=== PATIENT | male | born 1985 | race Caucasian/White ===

== ENCOUNTER 2016-10-12 05:02 | Observation (INO) | payer BC, MEDICAID ==
[2016-10-12] MEDS ORDERED: Sodium Chloride 0.9% 1,000 ML IV ONE ×2 (05:19→06:29)
[2016-10-12] MEDS ORDERED: Ondansetron 4 MG/2 ML SDV IVPUSH ONE (05:19)
[2016-10-12] MEDS ORDERED: Metoclopramide 10 MG/2 ML SDV IV ONE (05:52)
[2016-10-12] MEDS ORDERED: Morphine 4 MG/ML Syringe IVPUSH ONE (05:52)
[2016-10-12] MEDS ORDERED: Pantoprazole 40 MG Vial IVPUSH ONE (05:53)
[2016-10-12] MEDS ORDERED: LORazepam 2 MG/ML MDV IVPUSH ONE (06:14)
--- NOTE | 2016-10-12 07:06 | EDM.PDOC ---
[id number] 10/12/16 07:00 Source: Reports: Patient, EMS History Limitations: Reports: Other (upper GI bleed.) - History of Present Illness INITIAL COMMENTS - FREE TEXT/NARRATIVE: 30 years old w m came at about 5 am to the ed deu to hematemesis was seen and evaluated by Dr. Mckeon. Please see Dr. Richardson's PE as I took over the case. pt c/o epigastric pain, nausea has inproved, hematemesis has subsided. Vitals were stable. - Related Data Allergies/ADRs: Allergies Allergy/AdvReac Type Severity Reaction Status Date / Time diclofenac [From Voltaren] Allergy Itching Verified 10/12/16 05:18 Home Meds: Home Meds NK [No Known Home Meds] 10/12/16 [History] Past Medical History Respiratory History: Reports: Asthma Gastrointestinal History: Reports: Gastritis, GERD, GI bleed, PUD Genitourinary History: Reports: None Musculoskeletal History: Reports: None Neurological History: Reports: Migraines Psychiatric History: Reports: Anxiety, Depression, Psych Hospitalization(s), Suicide attempt, Suicidal ideation Endocrine/Metabolic History: Reports: Obesity/BMI 30+ - Infectious Disease History Infectious Disease History: Reports: Chicken pox - Past Surgical History GI Surgical History: Reports: Colonoscopy, EGD Male Surgical History: Reports: Vasectomy Musculoskeletal Surgical History: Reports: Arthroscopic knee, Shoulder surgery, Other (see below) Other Musculoskeletal Surgeries/Procedures:: R shoulder surgery x 20, R knee scope Social & Family History - Family History Family Medical History: Noncontributory - Tobacco Use Smoking Status *Q: Former Smoker Years of Tobacco use: 20 - Caffeine Use Caffeine Use: Reports: None - Alcohol Use Days Per Week of Alcohol Use: 1 Number of Drinks Per Day: 6 Total Drinks Per Week: 6 - Recreational Drug Use Recreational Drug Use: No ED ROS GENERAL - Review of Systems Review Of Systems: See Below (please see Dr. Richardson's note) ED EXAM, GI/ABD - Physical Exam Exam: See Below (please see Dr. Mckeon's not who saw the Pt initially) Course - Vital Signs Text/Narrative:: 30 years old w m came at about 5 am to the ed due to hematemesis, was seen and evaluated by Dr. Mckeon. Please see Dr. Richardson's HPI/PE. I took over the case at 7 am . Pt c/o epigastric pain, nausea has improved, hematemesis has subsided. Vitals were stable. Pt has a h/o ETOH abuse and upper GI Bleed in the past PE: epigastic discomfort S/P hematemesis Labs: HGB was 16.7, remainder of the CBC was nl, INR was 1.2 ETOH was 0.23 Impression: ETOH intoxication, upper GI bleed, H/O PUD, Dehydration Tx: Protronix drip, Zofran, Reglan, NS Impression: Improved Consultation: Dr. Frances, surgeon: Rosemary pt, will see pt at [facility] Plan: Admit to M/S for OBS Last Recorded V/S: Last Vital Signs Temp 36.5 C 10/12/16 13:45 Pulse 108 H 10/12/16 15:30 Resp 18 10/12/16 15:30 BP 131/94 H 10/12/16 15:30 Pulse Ox 96 10/12/16 15:30 - Orders/Labs/Meds Labs: Laboratory Tests 10/12/16 10/12/16 10/12/16 Range/Units 05:15 05:15 05:15 WBC 11.3 (4.5-12.0) X10-3/uL RBC 5.65 (4.30-5.75) x10(6)uL Hgb 16.5 H (11.5-15.5) g/dL Hct 49.4 (30.0-51.3) % MCV 87.4 (80-96) fL MCH 29.2 (27.7-33.6) pg MCHC 33.4 (32.2-35.4) g/dL RDW 13.7 (11.5-15.5) % Plt Count 232 (125-369) X10(3)uL MPV 10.1 (7.4-10.4) fL Neut % (Auto) 64.0 (46-82) % Lymph % (Auto) 27.5 (13-37) % [place] % (Auto) 6.1 (4-12) % Eos % (Auto) 0 L (1.0-5.0) % Baso % (Auto) 2 (0-2) % Neut # (Auto) 7.3 (1.6-8.3) # Lymph # (Auto) 3.1 (0.6-5.0) # [place] # (Auto) 0.7 (0.0-1.3) # Eos # (Auto) 0.0 (0.0-0.8) # Baso # (Auto) 0.2 (0.0-0.2) # PT 11.3 H (8.7-11.1) INR 1.12 (0.89-1.13) Sodium 137 (135-145) mmol/L Potassium 4.2 (3.5-5.3) mmol/L Chloride 106 (100-110) mmol/L Carbon Dioxide 20 L (23-29) mmol/L BUN 15 (5-20) mg/dL Creatinine 1.0 (0.6-1.3) mg/dL Est Cr Clr Drug Dosing TNP Estimated GFR (MDRD) > 60 (>60) BUN/Creatinine Ratio 15.0 (9-20) Glucose 112 (80-116) mg/dL Calcium 8.5 L (8.6-10.2) mg/dL Total Bilirubin 0.5 (0.1-1.3) mg/dL AST 58 H (5-27) IU/L ALT 48 H (14-26) IU/L Alkaline Phosphatase 68 (56-112) IU/L Total Protein 8.3 H (6.0-8.0) g/dL Albumin 5.1 (3.5-5.2) g/dL Globulin 3.2 g/dL Albumin/Globulin Ratio 1.6 Amylase (28-100) U/L Ethyl Alcohol (<0.01) % 10/12/16 10/12/16 Range/Units 05:15 05:15 WBC (4.5-12.0) X10-3/uL RBC (4.30-5.75) x10(6)uL Hgb (11.5-15.5) g/dL Hct (30.0-51.3) % MCV (80-96) fL MCH (27.7-33.6) pg MCHC (32.2-35.4) g/dL RDW (11.5-15.5) % Plt Count (125-369) X10(3)uL MPV (7.4-10.4) fL Neut % (Auto) (46-82) % Lymph % (Auto) (13-37) % [place] % (Auto) (4-12) % Eos % (Auto) (1.0-5.0) % Baso % (Auto) (0-2) % Neut # (Auto) (1.6-8.3) # Lymph # (Auto) (0.6-5.0) # [place] # (Auto) (0.0-1.3) # Eos # (Auto) (0.0-0.8) # Baso # (Auto) (0.0-0.2) # PT (8.7-11.1) INR (0.89-1.13) Sodium (135-145) mmol/L Potassium (3.5-5.3) mmol/L Chloride (100-110) mmol/L Carbon Dioxide (23-29) mmol/L BUN (5-20) mg/dL Creatinine (0.6-1.3) mg/dL Est Cr Clr Drug Dosing Estimated GFR (MDRD) (>60) BUN/Creatinine Ratio (9-20) Glucose (80-116) mg/dL Calcium (8.6-10.2) mg/dL Total Bilirubin (0.1-1.3) mg/dL AST (5-27) IU/L ALT (14-26) IU/L Alkaline Phosphatase (56-112) IU/L Total Protein (6.0-8.0) g/dL Albumin (3.5-5.2) g/dL Globulin g/dL Albumin/Globulin Ratio Amylase 61 (28-100) U/L Ethyl Alcohol 0.21 H* (<0.01) % Meds: Medications Discontinued Medications Generic Name Dose Route Start Last Admin Trade Name Freq PRN Reason Stop Dose Admin Hydromorphone HCl 0.5 mg 10/12/16 10:10 10/12/16 16:09 Dilaudid IVPUSH 0.5 mg Q2H PRN Administration Pain Sodium Chloride 1,000 mls @ 999 mls/hr 10/12/16 05:19 10/12/16 05:25 Normal Saline IV 10/12/16 06:19 999 mls/hr .BOLUS ONE Administration Sodium Chloride 1,000 mls @ 999 mls/hr 10/12/16 06:29 10/12/16 06:28 Normal Saline IV 10/12/16 07:29 999 mls/hr .BOLUS ONE Administration Pantoprazole Sodium 80 mg/ 100 mls @ 10 mls/hr 10/12/16 07:30 Sodium Chloride IV .Continuous MONET Pantoprazole Sodium 80 mg/ 100 mls @ 10 mls/hr 10/12/16 07:45 10/12/16 08:08 Sodium Chloride IV 10 mls/hr Q10H MONET Administration Lactated Ringer's 1,000 mls @ 150 mls/hr 10/12/16 07:40 Ringers, Lactated IV ASDIRECTED MONET Influenza Virus Vaccine 60 mcg 10/12/16 08:49 10/12/16 16:22 Fluzone/Fluarix Vaccine IM 10/12/16 08:50 60 mcg .ONCE ONE Administration Lorazepam 1 mg 10/12/16 06:14 10/12/16 06:20 Ativan IVPUSH 10/12/16 06:15 1 mg ONETIME ONE Administration Metoclopramide HCl 10 mg 10/12/16 05:52 10/12/16 06:04 Reglan IV 10/12/16 05:53 10 mg ONETIME ONE Administration Morphine Sulfate 4 mg 10/12/16 05:52 10/12/16 06:00 Morphine IVPUSH 10/12/16 05:53 4 mg ONETIME ONE Administration Ondansetron HCl 8 mg 10/12/16 05:19 10/12/16 05:25 Zofran IVPUSH 10/12/16 05:20 8 mg ONETIME ONE Administration Ondansetron HCl 8 mg 10/12/16 07:16 10/12/16 09:40 Zofran IV 8 mg Q6H PRN Administration Nausea/Vomiting Pantoprazole Sodium 40 mg 10/12/16 05:53 10/12/16 06:01 Protonix Iv IVPUSH 10/12/16 05:54 40 mg ONETIME ONE Administration Sodium Chloride 10 ml 10/12/16 07:16 10/12/16 10:46 Saline Flush FLUSH 10 ml ASDIRECTED PRN Administration Keep Vein Open Departure - Departure Time of Disposition: 07:20 Disposition: Refer to Observation Condition: fair Clinical Impression: Hematemesis with nausea
[2016-10-12] MEDS ORDERED: Sodium Chloride 0.9% 10 ML Syringe FLUSH PRN (07:16)
[2016-10-12] MEDS ORDERED: Ondansetron 4 MG/2 ML SDV IV PRN (07:16)
[2016-10-12] MEDS ORDERED: Pantoprazole 80 MG in Sodium Chloride 0.9% 100 ML IV SCH ×2 (07:30→07:45)
[2016-10-12] MEDS ORDERED: Lactated Ringers 1,000 ML IV SCH (07:40)
[2016-10-12] MEDS ORDERED: Flu Vaccine 2016-17(36Mos+)/PF 60 MCG/0.5 ML Syringe IM ONE (08:49)
--- NOTE | 2016-10-12 08:56 | PCM.CONS ---
H&P History of Present Illness - General Date of Service: 10/12/16 Admit Problem/Dx: Admission Diagnosis/Problem Admission Diagnosis/Problem Hematemesis Source of Information: Patient, Old records History Limitations: Reports: Intoxication - History of Present Illness Initial Comments - Free Text/Narative: Presented to Er with Hematemesis and abd pain. Has Hx of PUD and was at [facility] for 2 weeks last summer Onset of Symptoms: Reports: today, sudden Duration of Symptoms: Reports: Hour(s): Location: Reports: abdomen Quality: Reports: Ache Severity: moderate Associated Symptoms: Reports: nausea/vomiting R upper abdominal Pain Score (Numeric/FACES): 9 - Related Data Allergies/Adverse Reactions: Allergies Allergy/AdvReac Type Severity Reaction Status Date / Time diclofenac [From Voltaren] Allergy Itching Verified 10/12/16 05:18 Home Medications: Home Meds NK [No Known Home Meds] 10/12/16 [History] Past Medical History Respiratory History: Reports: Asthma Gastrointestinal History: Reports: Gastritis, GERD, GI bleed, PUD Genitourinary History: Reports: None Musculoskeletal History: Reports: None Neurological History: Reports: Migraines Psychiatric History: Reports: Anxiety, Depression, Psych Hospitalization(s), Suicide attempt, Suicidal ideation Endocrine/Metabolic History: Reports: Obesity/BMI 30+ - Infectious Disease History Infectious Disease History: Reports: Chicken pox - Past Surgical History GI Surgical History: Reports: Colonoscopy, EGD Male Surgical History: Reports: Vasectomy Musculoskeletal Surgical History: Reports: Arthroscopic knee, Shoulder surgery, Other (see below) Other Musculoskeletal Surgeries/Procedures:: R shoulder surgery x 20, R knee scope Social & Family History - Family History Family Medical History: Noncontributory - Tobacco Use Smoking Status *Q: Former Smoker Years of Tobacco use: 20 - Caffeine Use Caffeine Use: Reports: None - Alcohol Use Days Per Week of Alcohol Use: 1 Number of Drinks Per Day: 6 Total Drinks Per Week: 6 - Recreational Drug Use Recreational Drug Use: No Exam - Vital Signs Vital Signs: Last Vital Signs Temp 98.1 F 10/12/16 05:02 Pulse 120 H 10/12/16 05:02 Resp 18 10/12/16 07:00 BP 105/62 10/12/16 07:00 Pulse Ox 96 10/12/16 07:00 Weight: 99.79 kg - Patient Data Lab Results last 24 hrs: Laboratory Results - last 24 hr 10/12/16 Range/Units 07:40 Blood Type A POSITIVE Gel Antibody Screen Negative Result Diagrams: 10/12/16 05:15 10/12/16 05:15
--- NOTE | 2016-10-12 09:08 | PCM.CONS ---
H&P History of Present Illness - General Admit Problem/Dx: Admission Diagnosis/Problem Admission Diagnosis/Problem Hematemesis Source of Information: Patient, Old records History Limitations: Reports: Intoxication - History of Present Illness Initial Comments - Free Text/Narative: Presented to ER with Hematemesis and upper abd pian. Was in [facility] for 2 weeks last summer for same due to PUD Onset of Symptoms: Reports: today Duration of Symptoms: Reports: Hour(s): Location: Reports: abdomen Quality: Reports: Pressure, Same as previous episode Severity: moderate Improves with: Reports: Rest Associated Symptoms: Reports: nausea/vomiting R upper abdominal Pain Score (Numeric/FACES): 9 - Related Data Allergies/Adverse Reactions: Allergies Allergy/AdvReac Type Severity Reaction Status Date / Time diclofenac [From Voltaren] Allergy Itching Verified 10/12/16 05:18 Home Medications: Home Meds NK [No Known Home Meds] 10/12/16 [History] Past Medical History Respiratory History: Reports: Asthma Gastrointestinal History: Reports: Gastritis, GERD, GI bleed, PUD Other Gastrointestinal History: Pain pump inserted LLQ abd. and removed due to reaction from body. Genitourinary History: Reports: None Musculoskeletal History: Reports: None Neurological History: Reports: Migraines Psychiatric History: Reports: Anxiety, Depression, Psych Hospitalization(s), Suicide attempt, Suicidal ideation Endocrine/Metabolic History: Reports: Obesity/BMI 30+ - Infectious Disease History Infectious Disease History: Reports: Chicken pox - Past Surgical History GI Surgical History: Reports: Colonoscopy, EGD Male Surgical History: Reports: Vasectomy Musculoskeletal Surgical History: Reports: Arthroscopic knee, Shoulder surgery, Other (see below) Other Musculoskeletal Surgeries/Procedures:: R shoulder surgery x 20, R knee scope Social & Family History - Family History Family Medical History: Noncontributory - Tobacco Use Smoking Status *Q: Former Smoker Years of Tobacco use: 20 - Caffeine Use Caffeine Use: Reports: None - Alcohol Use Days Per Week of Alcohol Use: 1 Number of Drinks Per Day: 6 Total Drinks Per Week: 6 Date of Last Drink: 10/11/16 Time of Last Drink: 11:00 - Recreational Drug Use Recreational Drug Use: No H&P Review of Systems - Review of Systems: Review Of Systems: See Below General: Reports: no symptoms Pulmonary: Reports: No Symptoms Cardiovascular: Reports: no symptoms Gastrointestinal: Reports: Abdominal pain, Nausea Exam - Exam Exam: See Below - Vital Signs Vital Signs: Last Vital Signs Temp 97.7 F 10/12/16 07:14 Pulse 90 10/12/16 07:14 Resp 18 10/12/16 07:14 BP 129/105 H 10/12/16 07:14 Pulse Ox 96 10/12/16 07:14 Weight: 103.374 kg - Exam General: alert, cooperative, mild distress Lungs: Clear to auscultation, Normal respiratory effort Cardiovascular: regular rate, regular rhythm Abdomen: soft, tenderness (mild in RLQ and epigastric area) - Patient Data Lab Results last 24 hrs: Laboratory Results - last 24 hr 10/12/16 Range/Units 07:40 Blood Type A POSITIVE Gel Antibody Screen Negative Result Diagrams: 10/12/16 05:15 10/12/16 05:15 Consult PN Assessment/Plan Problem List Initiated/Reviewed/Updated: Yes My Orders last 24 hours: Hematemesis with alcohol intoxication Will proceed with EGD after lunch today
[2016-10-12] MEDS: HYDROmorphone 2 MG/ML SDV IVPUSH PRN ×3 (10:44→16:09)
--- NOTE | 2016-10-12 11:23 | PCM.HP ---
[id number] Diagnosis/Problem Admission Diagnosis/Problem Hematemesis Source of Information: Patient History Limitations: Reports: No limitations - History of Present Illness Initial Comments - Free Text/Narative: 30-year-old male with complaints of hematemesis. He started last night with complaints of bright red blood when he vomits acute epigastric pain. He also complains of black melena stool since 2 days ago he had been drinking alcohol last night. He came in a month emergency room anxious vomiting and pain. He has a history of GERD and cyclic vomiting with admission to [facility] last year. He also has a history of alcohol abuse, depression anxiety that is stable. He complains of no headache constipation, or diarrhea. No recent fever. Onset of Symptoms: Reports: today R upper abdominal Pain Score (Numeric/FACES): 9 - Related Data Allergies/Adverse Reactions: Allergies Allergy/AdvReac Type Severity Reaction Status Date / Time diclofenac [From Voltaren] Allergy Itching Verified 10/12/16 05:18 Home Medications: Home Meds NK [No Known Home Meds] 10/12/16 [History] Past Medical History Respiratory History: Reports: Asthma Gastrointestinal History: Reports: Gastritis, GERD, GI bleed, PUD Other Gastrointestinal History: Pain pump inserted LLQ abd. and removed due to reaction from body. Genitourinary History: Reports: None Musculoskeletal History: Reports: None Neurological History: Reports: Migraines Psychiatric History: Reports: Anxiety, Depression, Psych Hospitalization(s), Suicide attempt, Suicidal ideation Endocrine/Metabolic History: Reports: Obesity/BMI 30+ - Infectious Disease History Infectious Disease History: Reports: Chicken pox - Past Surgical History GI Surgical History: Reports: Colonoscopy, EGD Male Surgical History: Reports: Vasectomy Musculoskeletal Surgical History: Reports: Arthroscopic knee, Shoulder surgery, Other (see below) Other Musculoskeletal Surgeries/Procedures:: R shoulder surgery x 20, R knee scope Social & Family History - Family History Family Medical History: Noncontributory - Tobacco Use Smoking Status *Q: Former Smoker Years of Tobacco use: 20 - Caffeine Use Caffeine Use: Reports: None - Alcohol Use Days Per Week of Alcohol Use: 1 Number of Drinks Per Day: 6 Total Drinks Per Week: 6 Date of Last Drink: 10/11/16 Time of Last Drink: 11:00 - Recreational Drug Use Recreational Drug Use: No H&P Review of Systems - Review of Systems: Review Of Systems: ROS reveals no pertinent complaints other than HPI. Exam - Exam Exam: See Below - Vital Signs Vital Signs: Last Vital Signs Temp 97.7 F 10/12/16 07:14 Pulse 90 10/12/16 07:14 Resp 18 10/12/16 07:14 BP 129/105 H 10/12/16 07:14 Pulse Ox 96 10/12/16 07:14 Weight: 103.374 kg - Exam General: alert, oriented, 4 HEENT: PERRLA, Hearing intact, Mucosa moist & pink, Nares patent, Normal nasal septum, Posterior pharynx clear, Conjunctiva clear, EOMI, EACs clear, TMs clear Neck: supple, trachea midline, 2 Lungs: Clear to auscultation, Normal respiratory effort Cardiovascular: regular rate, regular rhythm Abdomen: normal bowel sounds, soft, tenderness. No: hepatomegaly, splenomegaly (Male) Exam: Deferred Rectal (Males) Exam: Deferred Back Exam: normal inspection, full range of motion, NT Extremities: 3, normal inspection, 10 Skin: warm, dry, intact Neurological: cranial nerves intact, reflexes equal bilateral Neuro Extensive - Mental Status: alert, oriented x3, normal mood/affect, normal cognition Neuro Extensive - Motor, Sensory, Reflexes: CN II-XII intact, normal gait, normal reflexes Psychiatric: anxious - Patient Data Lab Results last 24 hrs: Laboratory Results - last 24 hr 10/12/16 Range/Units 07:40 Blood Type A POSITIVE Gel Antibody Screen Negative Result Diagrams: 10/12/16 05:15 10/12/16 05:15 *Q Meaningful Use (ADM) - VTE *Q VTE Criteria *Q: - Stroke *Q Stroke Criteria *Q: - AMI *Q AMI Criteria *Q: - Problem List (1) Hematemesis with nausea SNOMED Code(s): 0630376 ICD Code: K92.0 - HEMATEMESIS; R11.0 - NAUSEA Status: Acute Problem List Initiated/Reviewed/Updated: Yes Orders Last 24hrs: Active Orders 24 hr Category Date Time Status Admission Status [Patient Status] [ADT] Routine ADT 10/12/16 07:14 Active Patient Status [ADT] Routine ADT 10/12/16 07:16 Active Oxygen Therapy [RC] PRN Care 10/12/16 07:16 Active Up With Assistance [RC] ASDIRECTED Care 10/12/16 07:16 Active Vital Signs [RC] Q4H Care 10/12/16 07:16 Active Nothing per Oral Now Diet [DIET] Diet 10/12/16 Breakfast Active HYDROmorphone [Dilaudid] Med 10/12/16 10:10 Active 0.5 mg IVPUSH Q2H PRN Lactated Ringers [Ringers, Lactated] 1,000 ml Med 10/12/16 07:40 Active IV ASDIRECTED Ondansetron [Zofran] Med 10/12/16 07:16 Active 8 mg IV Q6H PRN Pantoprazole [ProTONIX IV] 80 mg Med 10/12/16 07:45 Active Sodium Chloride 0.9% [Normal Saline] 100 ml IV Q10H Sodium Chloride 0.9% [Saline Flush] Med 10/12/16 07:16 Active 10 ml FLUSH ASDIRECTED PRN Peripheral IV Insertion Adult [OM.PC] Routine Oth 10/12/16 07:16 Ordered Resuscitation Status Routine Resus Stat 10/12/16 07:16 Ordered Medication Orders Hydromorphone HCl (Dilaudid) 0.5 mg IVPUSH Q2H PRN PRN Reason: Pain Last Admin: 10/12/16 10:44 Dose: 0.5 mg Pantoprazole Sodium 80 mg/ (Sodium Chloride) 100 mls @ 10 mls/hr IV Q10H MONET Last Admin: 10/12/16 08:08 Dose: 10 mls/hr Lactated Ringer's (Ringers, Lactated) 1,000 mls @ 150 mls/hr IV ASDIRECTED MONET Ondansetron HCl (Zofran) 8 mg IV Q6H PRN PRN Reason: Nausea/Vomiting Last Admin: 10/12/16 09:40 Dose: 8 mg Sodium Chloride (Saline Flush) 10 ml FLUSH ASDIRECTED PRN PRN Reason: Keep Vein Open Last Admin: 10/12/16 10:46 Dose: 10 ml Assessment/Plan Comment:: Patient was given 2 L of crystalloid in the emergency room with continued normal saline at 150 an hour. He was given Protonix and be kept n.p.o. I appreciate Dr. Frances consultation.The patient has an EGD scheduled later today. We'll keep him n.p.o. until then, and then clears afterwards depending on the results of the EGD. He will probably go home tonight on a PPI.
[2016-10-12] MEDS ORDERED: Propofol 200 MG/20 ML SDV IV ONE (13:00)
[2016-10-12] MEDS ORDERED: Lidocaine 2% 100 MG/5 ML Syringe IVPUSH ONE (13:00)
[2016-10-12] MEDS ORDERED: Lactated Ringers 1,000 ML IV ONE (13:00)
[2016-10-12] MEDS ORDERED: Midazolam 1 MG/ML 2 ML SDV IV ONE (13:00)
--- NOTE | 2016-10-12 13:19 | PCM.OPNOTE ---
- General Post-Op/Procedure Note Date of Surgery/Procedure: 10/12/16 Operative Procedure(s): EGD Findings: superficial gastric erosion Pre Op Diagnosis: UGI Bleed Post-Op Diagnosis: Same Anesthesia Technique: MAC Primary Surgeon: Jose David Frances Anesthesia Provider: Aditi Graf Condition: Good
[2016-10-12 16:41] VITALS: BP 131/94
--- NOTE | 2016-10-12 21:33 | OR ---
DATE OF OPERATION: 10/12/2016 SURGEON: Jose David Frances MD PREOPERATIVE DIAGNOSIS: Hematemesis. POSTOPERATIVE DIAGNOSIS: Superficial gastric erosion. PROCEDURE: EGD. ANESTHESIA: IV sedation. HISTORY: This 30-year-old gentleman presented to the emergency room earlier this morning with hematemesis and abdominal pain after drinking a significant amount of alcohol. He is hemodynamically stable and hemoglobin was normal. Upper endoscopy was recommended. I met with him prior to the procedure to review the risks and complications and informed consent was obtained. DESCRIPTION OF PROCEDURE: The patient was brought to the procedure room where anesthetic gargle was given and IV sedation administered. Oral bite block was placed and the upper endoscope advanced into the esophagus under direct vision without difficulty. The scope was advanced to the third portion of the duodenal bulb. Duodenal and pylorus were normal. Antrum has a small 5 mm superficial erosion without any evidence of active bleeding. The body and fundus were normal. No Celeste-Baires tear is identified. Air was removed from the stomach and the scope withdrawn through the esophagus, which is normal. Vocal cords were viewed and were normal. The patient tolerated the procedure well and returned to recovery in stable condition. /[id number] MARBELLA/TRINIDAD
--- NOTE | 2016-10-13 07:00 | ER ---
DATE SEEN: 10/12/2016 CHIEF COMPLAINT: Vomiting. HISTORY OF PRESENT ILLNESS: This is a 30-year-old male, who presents with vomiting. He describes coffee-ground possibly blood stained vomitus. Since last night he has been drinking alcohol. He also complains of sharp epigastric pain that is severe with no radiation. REVIEW OF SYSTEMS: No fever, chest pain, or shortness of breath. No melena stools. PAST MEDICAL HISTORY: 1. Alcohol use. 2. He has had a history of upper GI bleed. PHYSICAL EXAMINATION: VITAL SIGNS: Blood pressure is 152/94, pulse 120, and temperature 98.1. MENTAL STATUS: He is very anxious. ABDOMEN: Nondistended. There is tenderness in the epigastrium. CARDIOVASCULAR: Normal. LABORATORY DATA: White cell count is normal. Hemoglobin 16.5. INR is normal. Alcohol level is 0.21. Amylase is pending. AST and ALT are elevated. IMPRESSION: 1. Hematemesis. 2. Epigastric pain. 3. Alcohol intoxication. PLAN: 1. One liter of normal saline was given with an additional liter after this is over. 2. I gave morphine 4 mg IV, 1 mg of lorazepam, and 40 mg of pantoprazole. TIME SEEN: Ten minutes to six in the morning. Dr. Chen will take over when he comes at 7. /[id number] HUY/TRINIDAD
--- NOTE | 2016-10-14 19:37 | PN ---
DATE SEEN: 10/12/2016 HISTORY OF PRESENT ILLNESS: This is a 30-year-old male who was admitted this morning because of upper GI bleed. Dr. Frances performed EGD, please see his note for the details. He called me and informed me that the patient is able to go home. I called back to the nurses. The patient was sleeping and stable, but after that I discharged him home on omeprazole 20 mg once a day. I did discuss alcohol cessation with him prior to discharge. I spent only 15 minutes mostly on the phone and in completion of this progress note and discharge. I did not physically see him after the procedure. /[id number] HUY/TRINIDAD
== END 2016-10-12 18:30 | disposition home or self-care (01) ==
LOC: FB.ED 05:02 → FB.MS 07:12
PROVIDERS: ADMIT Family Medicine; ATTEND Family Medicine
DX: K25.9 Gastric ulcer, unspecified as acute or chronic, without hemorrhage or perforation (principal); K21.9 Gastro-esophageal reflux disease without esophagitis; F10.10 Alcohol abuse, uncomplicated; F41.9 Anxiety disorder, unspecified; F32.9 Major depressive disorder, single episode, unspecified; J45.909 Unspecified asthma, uncomplicated; G43.909 Migraine, unspecified, not intractable, without status migrainosus; E66.9 Obesity, unspecified; Z91.5 Personal history of self-harm; Z87.11 Personal history of peptic ulcer disease; Z68.30 Body mass index [BMI] 30.0-30.9, adult; Z98.890 Other specified postprocedural states; Z87.891 Personal history of nicotine dependence; Z79.899 Other long term (current) drug therapy
CPT/HCPCS: 00740; 36415; 43235; 80053; 82150; 85025; 85610; 86850; 86900; 86901; 96361; 96374; 96375; 96376; 99234; 99283; 99285; C9113; G0008; G0378; G0480; J1170; J2060; J2250; J2270; J2405; J2704; J2765; J7030; J7040; J7050; J7120; 90686

== ENCOUNTER 2017-01-03 09:25 | Emergency (ER) | payer BC, MEDICAID ==
[2017-01-03] MEDS ORDERED: Sodium Chloride 0.9% 500 ML IV ONE (09:40)
[2017-01-03] MEDS ORDERED: LORazepam 2 MG/ML MDV IVPUSH ONE (09:51)
[2017-01-03] MEDS ORDERED: Ondansetron 4 MG/2 ML SDV IVPUSH ONE (09:51)
--- NOTE | 2017-01-03 11:24 | EDM.PDOC ---
ED HPI GENERAL MEDICAL PROBLEM - General Chief Complaint: Behavioral/Psych Stated Complaint: SUCIDIAL Time Seen by Provider: 01/03/17 09:30 Source of Information: Reports: Patient - History of Present Illness INITIAL COMMENTS - FREE TEXT/NARRATIVE: history of depression, has not been taking his medications for about 8 months, and has been self medicating daily with alcohol. Been more suicidal and depressed today has thought of several ways to end his life. Feels overwhelmed and hopeless. Onset: Gradual Duration: Chronic, Constant Right Face Pain Score (Numeric/FACES): 3 - Related Data Allergies Allergy/AdvReac Type Severity Reaction Status Date / Time diclofenac [From Voltaren] Allergy Itching Verified 01/03/17 09:38 Home Meds: Home Meds NK [No Known Home Meds] 10/12/16 [History] Past Medical History - Past Health History Medical/Surgical History: Denies Medical/Surgical History Respiratory History: Reports: Asthma Gastrointestinal History: Reports: Gastritis, GERD, GI Bleed, PUD Other Gastrointestinal History: Pain pump inserted LLQ abd. and removed due to reaction from body. Genitourinary History: Reports: None Musculoskeletal History: Reports: None Neurological History: Reports: Migraines Psychiatric History: Reports: Anxiety, Depression, Psych Hospitalization(s), Suicide Attempt, Suicidal Ideation Endocrine/Metabolic History: Reports: Obesity/BMI 30+ - Infectious Disease History Infectious Disease History: Reports: Chicken Pox - Past Surgical History Male Surgical History: Reports: Vasectomy Musculoskeletal Surgical History: Reports: Arthroscopic Knee, Shoulder Surgery, Other (See Below) Social & Family History - Family History Family Medical History: Noncontributory - Tobacco Use Smoking Status *Q: Never Smoker Years of Tobacco use: 20 Second Hand Smoke Exposure: No - Caffeine Use Caffeine Use: Reports: Energy Drinks, Soda - Alcohol Use Days Per Week of Alcohol Use: 7 Number of Drinks Per Day: 10 Total Drinks Per Week: 70 Date of Last Drink: 01/03/17 Time of Last Drink: 02:00 - Recreational Drug Use Recreational Drug Use: No ED ROS GENERAL - Review of Systems Review Of Systems: See Below Constitutional: Denies: Fever, Chills Cardiovascular: Denies: Chest Pain ED EXAM, BEHAVIORAL HEALTH - Physical Exam Exam: See Below Exam Limited By: Intoxication General Appearance: Alert Eye Exam: Bilateral Eye: PERRL Head: Atraumatic Neck: Normal Inspection, Supple Respiratory/Chest: No Respiratory Distress, Lungs Clear Cardiovascular: Normal Peripheral Pulses, Regular Rate, Rhythm COURSE, BEHAVIORAL HEALTH COMP - Course Vital Signs: Last Vital Signs Temp 36.4 C 01/03/17 10:48 Pulse 86 01/03/17 10:59 Resp 16 01/03/17 10:59 BP 129/90 01/03/17 10:59 Pulse Ox 100 01/03/17 10:59 Orders, Labs, Meds: Active Orders 24 hr Category Date Time Status EKG Documentation Completion [RC] ASDIRECTED Care 01/03/17 09:38 Inactive EKG 12 Lead [EK] Routine Ther 01/03/17 09:38 Stop Req Laboratory Tests 01/03/17 01/03/17 01/03/17 Range/Units 09:55 09:55 09:55 WBC 19.3 H (4.5-12.0) X10-3/uL RBC 5.80 H (4.30-5.75) x10(6)uL Hgb 17.2 H (11.5-15.5) g/dL Hct 51.0 (30.0-51.3) % MCV 87.9 (80-96) fL MCH 29.6 (27.7-33.6) pg MCHC 33.7 (32.2-35.4) g/dL RDW 12.4 (11.5-15.5) % Plt Count 201 (125-369) X10(3)uL MPV 10.6 H (7.4-10.4) fL Add Manual Diff Yes Neutrophils % (Manual) 83 H (46-82) % Lymphocytes % (Manual) 12 L (13-37) % Monocytes % (Manual) 5 (4-12) % Sodium 142 (135-145) mmol/L Potassium 4.2 (3.5-5.3) mmol/L Chloride 107 (100-110) mmol/L Carbon Dioxide 21 L (23-29) mmol/L BUN 18 (5-20) mg/dL Creatinine 0.9 (0.6-1.3) mg/dL Est Cr Clr Drug Dosing 120.54 mL/min Estimated GFR (MDRD) > 60 (>60) BUN/Creatinine Ratio 20.0 (9-20) Glucose 80 (80-116) mg/dL Calcium 9.4 (8.6-10.2) mg/dL Total Bilirubin 0.8 (0.1-1.3) mg/dL AST 59 H (5-27) IU/L ALT 46 H (14-26) IU/L Alkaline Phosphatase 69 (56-112) IU/L Total Protein 8.4 H (6.0-8.0) g/dL Albumin 5.1 (3.5-5.2) g/dL Globulin 3.3 g/dL Albumin/Globulin Ratio 1.6 TSH, Ultra Sensitive 0.44 (0.4-5.5) nlU/mL Urine Color (YELLOW) Urine Appearance (CLEAR) Urine pH (5.0-6.5) Ur Specific [place] (1.010-1.025) Urine Protein (NEGATIVE) mg/dL Urine Glucose (UA) (NEGATIVE) mg/dL Urine Ketones (NEGATIVE) mg/dL Urine Occult Blood (NEGATIVE) Urine Nitrite (NEGATIVE) Urine Bilirubin (NEGATIVE) Urine Urobilinogen (NEGATIVE) mg/dL Ur Leukocyte Esterase (NEGATIVE) Urine RBC (0) Urine WBC (0) Ur Squamous Epith Cells (NS,R,O) Urine Bacteria (NS) Urine Opiates Screen (NEGATIVE) Ur Oxycodone Screen (NEGATIVE) Ur Propoxyphene Screen (NEGATIVE) Ur Barbituates Screen (NEGATIVE) Ur Tricyclics Screen (NEGATIVE) Ur Phencyclidine Scrn (NEGATIVE) Ur Amphetamine Screen (NEGATIVE) Urine MDMA Screen (NEGATIVE) U Benzodiazepines Scrn (NEGATIVE) U Cocaine Metab Screen (NEGATIVE) U Marijuana (THC) Screen (NEGATIVE) Ethyl Alcohol (<0.01) % 01/03/17 01/03/17 01/03/17 Range/Units 09:55 10:20 10:20 WBC (4.5-12.0) X10-3/uL RBC (4.30-5.75) x10(6)uL Hgb (11.5-15.5) g/dL Hct (30.0-51.3) % MCV (80-96) fL MCH (27.7-33.6) pg MCHC (32.2-35.4) g/dL RDW (11.5-15.5) % Plt Count (125-369) X10(3)uL MPV (7.4-10.4) fL Add Manual Diff Neutrophils % (Manual) (46-82) % Lymphocytes % (Manual) (13-37) % Monocytes % (Manual) (4-12) % Sodium (135-145) mmol/L Potassium (3.5-5.3) mmol/L Chloride (100-110) mmol/L Carbon Dioxide (23-29) mmol/L BUN (5-20) mg/dL Creatinine (0.6-1.3) mg/dL Est Cr Clr Drug Dosing mL/min Estimated GFR (MDRD) (>60) BUN/Creatinine Ratio (9-20) Glucose (80-116) mg/dL Calcium (8.6-10.2) mg/dL Total Bilirubin (0.1-1.3) mg/dL AST (5-27) IU/L ALT (14-26) IU/L Alkaline Phosphatase (56-112) IU/L Total Protein (6.0-8.0) g/dL Albumin (3.5-5.2) g/dL Globulin g/dL Albumin/Globulin Ratio TSH, Ultra Sensitive (0.4-5.5) nlU/mL Urine Color Yellow (YELLOW) Urine Appearance Clear (CLEAR) Urine pH 5.0 (5.0-6.5) Ur Specific [place] 1.015 (1.010-1.025) Urine Protein 30 H (NEGATIVE) mg/dL Urine Glucose (UA) Normal (NEGATIVE) mg/dL Urine Ketones 15 H (NEGATIVE) mg/dL Urine Occult Blood Large H (NEGATIVE) Urine Nitrite Negative (NEGATIVE) Urine Bilirubin Negative (NEGATIVE) Urine Urobilinogen Normal (NEGATIVE) mg/dL Ur Leukocyte Esterase Negative (NEGATIVE) Urine RBC 0-5 (0) Urine WBC 0-5 (0) Ur Squamous Epith Cells Few H (NS,R,O) Urine Bacteria Few H (NS) Urine Opiates Screen Negative (NEGATIVE) Ur Oxycodone Screen Negative (NEGATIVE) Ur Propoxyphene Screen Negative (NEGATIVE) Ur Barbituates Screen Negative (NEGATIVE) Ur Tricyclics Screen Negative (NEGATIVE) Ur Phencyclidine Scrn Negative (NEGATIVE) Ur Amphetamine Screen Negative (NEGATIVE) Urine MDMA Screen Negative (NEGATIVE) U Benzodiazepines Scrn Negative (NEGATIVE) U Cocaine Metab Screen Negative (NEGATIVE) U Marijuana (THC) Screen Negative (NEGATIVE) Ethyl Alcohol 0.09 H (<0.01) % Medications Discontinued Medications Generic Name Dose Route Start Last Admin Trade Name Sea PRN Reason Stop Dose Admin Sodium Chloride 500 mls @ 0 mls/hr 01/03/17 09:40 01/03/17 10:15 Normal Saline IV 01/03/17 09:41 999 mls/hr .BOLUS ONE Administration KVO Lorazepam 2 mg 01/03/17 09:51 01/03/17 10:22 Ativan IVPUSH 01/03/17 09:52 2 mg ONETIME ONE Administration Ondansetron HCl 8 mg 01/03/17 09:51 01/03/17 10:16 Zofran IVPUSH 01/03/17 09:52 8 mg ONETIME ONE Administration Departure - Departure Time of Disposition: 11:24 Disposition: DC/Tfer to Psych Hosp/Unit 65 Clinical Impression: Depressive disorder, Alcohol abuse - Discharge Information Forms: ED Department Discharge - My Orders Last 24 Hours: My Active Orders 01/03/17 09:38 EKG Documentation Completion [RC] ASDIRECTED EKG 12 Lead [EK] Routine - Assessment/Plan Last 24 Hours: My Active Orders 01/03/17 09:38 EKG Documentation Completion [RC] ASDIRECTED EKG 12 Lead [EK] Routine
[2017-01-03 13:01] VITALS: BP 146/91
== END 2017-01-03 12:40 ==
LOC: FB.ED 09:25
DX: F32.9 Major depressive disorder, single episode, unspecified (principal); F10.10 Alcohol abuse, uncomplicated; J45.909 Unspecified asthma, uncomplicated; K21.9 Gastro-esophageal reflux disease without esophagitis; F41.9 Anxiety disorder, unspecified; E66.9 Obesity, unspecified; Z98.890 Other specified postprocedural states; G43.909 Migraine, unspecified, not intractable, without status migrainosus
CPT/HCPCS: 36415; 80053; 80305; 81001; 84443; 85025; 96374; 96375; 99285; G0480; J2060; J2405; J7040

== ENCOUNTER 2017-01-22 20:42 | Emergency (ER) | payer BC, MEDICAID ==
[2017-01-22] MEDS ORDERED: Sodium Chloride 0.9% 10 ML Syringe FLUSH PRN (21:07)
[2017-01-22] MEDS ORDERED: Sodium Chloride 0.9% 1,000 ML IV ONE (21:07)
[2017-01-22] MEDS ORDERED: Prochlorperazine 10 MG in Sodium Chloride 0.9% 50 ML IV ONE (21:08)
[2017-01-22] MEDS ORDERED: Alum Hydroxide/Mag Hydroxide 15 ML, Lidocaine 2% 15 ML PO ONE ×2 (21:09)
--- NOTE | 2017-01-22 21:13 | EDM.PDOC ---
ED HPI GENERAL MEDICAL PROBLEM - General Chief Complaint: Gastrointestinal Problem Stated Complaint: VOMITTING Time Seen by Provider: 01/22/17 21:00 Source of Information: Reports: Patient, Family History Limitations: Reports: No Limitations - History of Present Illness INITIAL COMMENTS - FREE TEXT/NARRATIVE: Reid comes to [facility] ED tonight with ongoing issues of nausea and vomiting over the past 24 hrs. He was recently discharged from [facility] in [place], [place] last week for similar sxs, had a GI consult including EGD and Colonscopy, bx results pending. He denies abdominal pain. He is off PPIs, but is unable to manage other oral meds. He dienies ETOH, NSAID, or ASA usage. He was started on ProBiotics. - Related Data Allergies Allergy/AdvReac Type Severity Reaction Status Date / Time diclofenac [From Voltaren] Allergy Itching Verified 01/22/17 20:56 Home Meds: Home Meds FLUoxetine [PROzac] 20 mg PO DAILY 01/22/17 [History] Omeprazole [Omeprazole] 20 mg PO DAILY 01/22/17 [History] Ondansetron [Ondansetron] 4 mg PO Q6HR PRN 01/22/17 [History] Prochlorperazine [Compazine] 10 mg PO Q8H #10 tab 01/22/17 [Rx] buPROPion [Wellbutrin SR] 150 mg PO DAILY 01/22/17 [History] Past Medical History - Past Health History Medical/Surgical History: Denies Medical/Surgical History Respiratory History: Reports: Asthma Gastrointestinal History: Reports: Gastritis, GERD, GI Bleed, PUD Other Gastrointestinal History: Pain pump inserted LLQ abd. and removed due to reaction from body. Genitourinary History: Reports: None Musculoskeletal History: Reports: None Neurological History: Reports: Migraines Psychiatric History: Reports: Anxiety, Depression, Psych Hospitalization(s), Suicide Attempt, Suicidal Ideation Endocrine/Metabolic History: Reports: Obesity/BMI 30+ - Infectious Disease History Infectious Disease History: Reports: Chicken Pox - Past Surgical History Male Surgical History: Reports: Vasectomy Musculoskeletal Surgical History: Reports: Arthroscopic Knee, Shoulder Surgery, Other (See Below) Social & Family History - Family History Family Medical History: Noncontributory - Tobacco Use Smoking Status *Q: Never Smoker Years of Tobacco use: 20 Second Hand Smoke Exposure: No - Caffeine Use Caffeine Use: Reports: Energy Drinks, Soda - Alcohol Use Days Per Week of Alcohol Use: 7 Number of Drinks Per Day: 10 Total Drinks Per Week: 70 - Recreational Drug Use Recreational Drug Use: No ED ROS GENERAL - Review of Systems Review Of Systems: See Below Constitutional: Reports: Malaise, Decreased Appetite HEENT: Reports: No Symptoms Respiratory: Reports: No Symptoms Cardiovascular: Reports: No Symptoms Endocrine: Reports: No Symptoms GI/Abdominal: Reports: Nausea, Vomiting : Reports: No Symptoms Musculoskeletal: Reports: No Symptoms Skin: Reports: No Symptoms Neurological: Reports: No Symptoms Psychiatric: Reports: No Symptoms Hematologic/Lymphatic: Reports: No Symptoms Immunologic: Reports: No Symptoms ED EXAM, GI/ABD - Physical Exam Exam: See Below Exam Limited By: No Limitations General Appearance: Alert, WD/WN, Anxious, Mild Distress Eyes: Bilateral: Normal Appearance, EOMI Ears: Normal External Exam Nose: Normal Inspection Throat/Mouth: Normal Inspection, Normal Oropharynx Head: Normocephalic Neck: Normal Inspection, Supple Respiratory/Chest: Lungs Clear Cardiovascular: Regular Rate, Rhythm GI/Abdominal: Normal Bowel Sounds, Soft, Non-Tender, No Organomegaly, No Distention, No Mass Back Exam: Normal Inspection Extremities: Normal Inspection Neurological: Alert, Oriented, CN II-XII Intact, Normal Cognition, Normal Gait, Normal Reflexes, No Motor/Sensory Deficits Psychiatric: Normal Affect, Anxious Skin Exam: Warm, Dry, Intact Lymphatic: No Adenopathy Course - Vital Signs Text/Narrative:: Reid was administered 1L of NS, Compazine 10 mg IV, and a GI cocktail with resolution of sxs. Last Recorded V/S: Last Vital Signs Temp 36.8 C 01/22/17 21:00 Pulse 65 01/22/17 22:08 Resp 16 01/22/17 22:08 BP 130/65 01/22/17 22:08 Pulse Ox 98 01/22/17 22:08 - Orders/Labs/Meds Orders: Active Orders 24 hr Category Date Time Status Sodium Chloride 0.9% [Saline Flush] Med 01/22/17 21:07 Active 10 ml FLUSH ASDIRECTED PRN Peripheral IV Insertion Adult [OM.PC] Routine Oth 01/22/17 21:07 Ordered Medication Orders Sodium Chloride (Saline Flush) 10 ml FLUSH ASDIRECTED PRN PRN Reason: Keep Vein Open Meds: Medications Generic Name Dose Route Start Last Admin Trade Name Sea PRN Reason Stop Dose Admin Sodium Chloride 10 ml 01/22/17 21:07 Saline Flush FLUSH ASDIRECTED PRN Keep Vein Open Discontinued Medications Generic Name Dose Route Start Last Admin Trade Name Sea PRN Reason Stop Dose Admin Al Hydroxide/Mg Hydroxide 15 0 ml 01/22/17 21:09 01/22/17 22:15 ml/ Lidocaine HCl 15 ml PO 01/22/17 21:10 45 ml ONETIME ONE Administration Prochlorperazine Edisylate 10 52 mls @ 150 mls/hr 01/22/17 21:08 mg/ Sodium Chloride IV 01/22/17 21:28 ONETIME ONE Sodium Chloride 1,000 mls @ 999 mls/hr 01/22/17 21:07 01/22/17 21:28 Normal Saline IV 01/22/17 22:07 999 mls/hr .BOLUS ONE Administration Prochlorperazine Edisylate 10 mg 01/22/17 21:28 01/22/17 21:40 Compazine IVPUSH 01/22/17 21:29 10 mg ONETIME ONE Administration Departure - Departure Time of Disposition: 22:33 Disposition: Home, Self-Care 01 Condition: Good Clinical Impression: Nausea and vomiting in adult - Discharge Information Prescriptions: Prochlorperazine [Compazine] 10 mg PO Q8H #10 tab Forms: ED Department Discharge - Problem List & Annotations (1) Nausea and vomiting in adult SNOMED Code(s): 09933897 Code(s): R11.2 - NAUSEA WITH VOMITING, UNSPECIFIED Status: Acute Current Visit: Yes Annotation/Comment:: I dispensed Compazine 10 mg tabs 2-4 times per day as needed for any relapse of sxs. - Problem List Review Problem List Initiated/Reviewed/Updated: Yes - My Orders Last 24 Hours: My Active Orders 01/22/17 21:07 Sodium Chloride 0.9% [Saline Flush] 10 ml FLUSH ASDIRECTED PRN Peripheral IV Insertion Adult [OM.PC] Routine - Assessment/Plan Last 24 Hours: My Active Orders 01/22/17 21:07 Sodium Chloride 0.9% [Saline Flush] 10 ml FLUSH ASDIRECTED PRN Peripheral IV Insertion Adult [OM.PC] Routine Plan: He may return to work tomorrow if able. Follow up with PCP.
[2017-01-22] MEDS ORDERED: Prochlorperazine 10 MG/2 ML SDV IVPUSH ONE (21:28)
[2017-01-22 23:19] VITALS: BP 129/83
== END 2017-01-22 22:50 | disposition home or self-care (01) ==
LOC: FB.ED 20:42
DX: R11.2 Nausea with vomiting, unspecified (principal); F41.8 Other specified anxiety disorders; Z88.8 Allergy status to other drugs, medicaments and biological substances; Z79.899 Other long term (current) drug therapy
CPT/HCPCS: 96365; 96375; 99283; A9270; J0780; J7040; 96361; 96374